=== PATIENT | female | born 1980 | race Caucasian/White ===

== ENCOUNTER 2018-07-22 22:10 | Emergency (ER) | payer OTHER ==
[2018-07-22] MEDS ORDERED: NS 1,000 ML IV ONE (22:14)
--- NOTE | 2018-07-22 22:16 | EDPHY ---
H & P Time Seen by Provider: 07/22/18 22:14 HPI/ROS: HPI CHIEF COMPLAINT: Syncope HISTORY OF PRESENT ILLNESS: Patient is a very pleasant 38-year-old female she is otherwise healthy however takes thyroid medication, she just arrived here from [place]. She states she stayed well hydrated. She went out to dinner tonight and ate edible marijuana and then had a syncopal episode. She is unclear exactly what happened. She denies any chest pain shortness of breath, denies palpitations. Denies lightheadedness. She flew in today. Currently upon arrival to the emergency room she denies any complaints except a left-sided headache where she struck her head. She has supra-orbital left eyebrow hematoma. Past Medical History: Thyroid disease Past Surgical History: Denies recent surgery Social History: Pre denies daily use of drugs alcohol tobacco. Did edible marijuana tonight. Up to 10 mg orally. Family History: Noncontributory ROS REVIEW OF SYSTEMS: 10 Systems were reviewed and negative with the exception of the elements mentioned in the history of present illness. Exam Constitutional nontoxic no acute distress triage nursing summary reviewed, vital signs reviewed, awake/alert. Eyes normal conjunctivae and sclera, EOMI, PERRLA. HENT head/neck atraumatic except over the left eyebrow there is a hematoma present, midface stable, no midline neck pain, moist mucus membranes, no epistaxis, neck supple/ no meningismus, no raccoon eyes. Respiratory clear to auscultation bilaterally, normal breath sounds, no respiratory distress, no wheezing. Cardiovascular rate normal, regular rhythm, no murmur, no edema, distal pulses normal. Gastrointestinal soft, non-tender, no rebound, no guarding, normal bowel sounds, no distension, no pulsatile mass. Genitourinary no CVA tenderness. Musculoskeletal no midline vertebral tenderness, full range of motion, no calf swelling, no tenderness of extremities, no meningismus, good pulses, neurovascularly intact. Skin pink, warm, & dry, no rash, skin atraumatic. Neurologic awake, alert and oriented x 3, AAOx3, moves all 4 extremities equally, motor intact, sensory intact, CN II-XII intact, normal cerebellar, normal vision, normal speech. Psychiatric normal mood/affect. Heme/Lymph/Immune no lymphadenopathy. Differential Diagnosis: Includes but is not limited to in a particular order closed-head injury, intracranial bleed, skull fracture, orbital fracture, vasovagal syncope, orthostatic syncope, dehydration, cardiac arrhythmia, electrolyte disturbance, marijuana intoxication, dehydration, altitude illness Medical Decision Making: Plan for this patient IV establishment IV fluid bolus EKG, troponin, electrolytes, CT scan head without contrast for trauma given fall with external head trauma on exam, chest x-ray. Re-evaluation: EKG interpretation by me on record in [facility] system. Impression time of EKG 2224, sinus rhythm rate of 66, no signs of cardiac arrhythmia no signs of WPW no signs of Brugada. No signs of acute ischemia. CT scan head without contrast negative for acute traumatic injury called to me by Dr. Garcia. Chest x-ray one view reviewed negative for acute cardiopulmonary disease. Lab work reviewed negative troponin. Potassium slightly low oral potassium ordered. Patient re-evaluated 2340: Patient requesting discharge. She feels much better would like to go home. Return precautions discussed with her she understands return emergency room she develops chest pain, shortness of breath, syncope, Recommend staying well hydrated. Drink lots of fluids. Return if worse Source: Patient, EMS Constitutional: Initial Vital Signs Temperature (C) 37.2 C 07/22/18 22:24 Heart Rate 68 07/22/18 22:24 Respiratory Rate 18 07/22/18 22:24 Blood Pressure 127/70 H 07/22/18 22:24 O2 Sat (%) 97 07/22/18 22:24 O2 Delivery Mode Room Air Allergies/Adverse Reactions: medroxyprogesterone [From Depo-Provera] Allergy (Verified 07/22/18 22:15) polyethylene glycol 3350 [From Miralax] Allergy (Verified 07/22/18 22:15) Home Medications: Medication Instructions Recorded Citrulline 07/22/18 Levothyroxine 07/22/18 Medical Decision Making - Diagnostics Imaging Results: Imaging Impressions Chest X-Ray 07/22/18 22:14 Impression: 1. No acute pulmonary disease. 2. Consider chest two views when the patient's medical condition permits. Head CT 07/22/18 22:14 Impression: 1. Left periorbital hematoma. 2. No skull fracture. 3. No intracranial hemorrhage or epidural/subdural hematoma. Findings and recommendations discussed with Emergency Department physician, Volodymyr Grewal MD at 23:03 hour, 07/22/2018. Final report concurs with initial preliminary interpretation. - Data Points Laboratory Results: Laboratory Results 07/22/18 22:20 07/22/18 22:20 07/22/18 07/22/18 07/22/18 22:24 22:20 22:20 WBC RBC Hgb Hct MCV MCH MCHC RDW Plt Count MPV Neut % (Auto) Lymph % (Auto) [place] % (Auto) Eos % (Auto) Baso % (Auto) Nucleat RBC Rel Count Absolute Neuts (auto) Absolute Lymphs (auto) Absolute Monos (auto) Absolute Eos (auto) Absolute Basos (auto) Absolute Nucleated RBC Immature Gran % Immature Gran # Sodium 136 mEq/L mEq/L (135-145) Potassium 3.1 mEq/L L mEq/L (3.3-5.0) Chloride 101 mEq/L mEq/L (97-110) Carbon Dioxide 28 mEq/l mEq/l (22-31) Anion Gap 7 mEq/L mEq/L (6-14) BUN 8 mg/dL mg/dL (7-23) Creatinine 0.7 mg/dL mg/dL (0.6-1.0) Estimated GFR > 60 Glucose 109 mg/dL H mg/dL (70-100) Calcium 9.1 mg/dL mg/dL (8.5-10.4) Magnesium 2.0 mg/dL mg/dL (1.6-2.3) Total Bilirubin 1.1 mg/dL mg/dL (0.1-1.4) Conjugated Bilirubin 0.1 mg/dL mg/dL (0.0-0.5) Unconjugated Bilirubin 1.0 mg/dL mg/dL (0.0-1.1) AST 27 IU/L IU/L (14-46) ALT 27 IU/L IU/L (9-52) Alkaline Phosphatase 55 IU/L IU/L (38-126) POC Troponin I 0.01 ng/mL ng/mL (0.00-0.08) NT-Pro-B Natriuret Pep 29 pg/mL pg/mL (0-125) Total Protein 6.9 g/dL g/dL (6.3-8.2) Albumin 4.1 g/dL g/dL (3.5-5.0) Lipase 90 IU/L IU/L (23-300) Beta HCG, Qual NEGATIVE 07/22/18 22:20 WBC 8.41 10^3/uL 10^3/uL (3.80-9.50) RBC 4.13 10^6/uL L 10^6/uL (4.18-5.33) Hgb 12.3 g/dL L g/dL (12.6-16.3) Hct 37.2 % L % (38.0-47.0) MCV 90.1 fL fL (81.5-99.8) MCH 29.8 pg pg (27.9-34.1) MCHC 33.1 g/dL g/dL (32.4-36.7) RDW 12.3 % % (11.5-15.2) Plt Count 278 10^3/uL 10^3/uL (150-400) MPV 10.1 fL fL (8.7-11.7) Neut % (Auto) 44.3 % % (39.3-74.2) Lymph % (Auto) 45.8 % H % (15.0-45.0) [place] % (Auto) 5.9 % % (4.5-13.0) Eos % (Auto) 3.1 % % (0.6-7.6) Baso % (Auto) 0.7 % % (0.3-1.7) Nucleat RBC Rel Count 0.0 % % (0.0-0.2) Absolute Neuts (auto) 3.72 10^3/uL 10^3/uL (1.70-6.50) Absolute Lymphs (auto) 3.85 10^3/uL H 10^3/uL (1.00-3.00) Absolute Monos (auto) 0.50 10^3/uL 10^3/uL (0.30-0.80) Absolute Eos (auto) 0.26 10^3/uL 10^3/uL (0.03-0.40) Absolute Basos (auto) 0.06 10^3/uL 10^3/uL (0.02-0.10) Absolute Nucleated RBC 0.00 10^3/uL 10^3/uL (0-0.01) Immature Gran % 0.2 % % (0.0-1.1) Immature Gran # 0.02 10^3/uL 10^3/uL (0.00-0.10) Sodium Potassium Chloride Carbon Dioxide Anion Gap BUN Creatinine Estimated GFR Glucose Calcium Magnesium Total Bilirubin Conjugated Bilirubin Unconjugated Bilirubin AST ALT Alkaline Phosphatase POC Troponin I NT-Pro-B Natriuret Pep Total Protein Albumin Lipase Beta HCG, Qual Medications Given: Discontinued Medications Sodium Chloride (Ns) 1,000 mls @ 0 mls/hr IV EDNOW ONE; Wide Open PRN Reason: Protocol Stop: 07/22/18 22:15 Last Admin: 07/22/18 22:20 Dose: 1,000 mls Ibuprofen (Motrin) 800 mg PO EDNOW ONE Stop: 07/22/18 22:56 Last Admin: 07/22/18 22:57 Dose: 800 mg Potassium Chloride (Klor Packets) 20 meq PO EDNOW ONE Stop: 07/22/18 23:02 Last Admin: 07/22/18 23:09 Dose: 20 meq Point of Care Test Results: Chemistry 07/22/18 22:24 POC Troponin I 0.01 ng/mL ng/mL (0.00-0.08) Departure - Departure Disposition: Home, Routine, Self-Care Clinical Impression: Syncope Qualifiers: Syncope type: unspecified Qualified Code(s): R55 - Syncope and collapse Condition: Good Instructions: Syncope (ED) Additional Instructions: 1. Stay well-hydrated drink lots of fluids 2. Return to the emergency room if there is worsening symptoms 3. Refrain from marijuana and alcohol. 4. Why your at altitude drink lots of fluids. Referrals: Patient,NotPresent [Primary Care Provider] - As per Instructions
[2018-07-22 22:35] LABS: PLATELET COUNT 278 10^3/uL (150-400)
[2018-07-22] MEDS ORDERED: IBUPROFEN 800 MG TAB PO ONE (22:55)
[2018-07-22] MEDS ORDERED: POTASSIUM CL 20 MEQ PKT PO ONE (23:01)
[2018-07-22 23:55] VITALS: BP 137/98
--- NOTE | 2018-07-26 05:48 | CPEKG ---
Test Reason : OPEN Blood Pressure : / mmHG Vent. Rate : 066 BPM Atrial Rate : 065 BPM P-R Int : 165 ms QRS Dur : 121 ms QT Int : 406 ms P-R-T Axes : 067 054 050 degrees QTc Int : 426 ms Sinus rhythm Nonspecific intraventricular conduction delay Confirmed by Volodymyr Grewal ([id number]) on 07/26/2018 5:47:35 AM Referred By: Confirmed By:Volodymyr Grewal
== END 2018-07-22 23:59 | disposition home or self-care (01) ==
DX: R55 Syncope and collapse (principal); S00.83XA Contusion of other part of head, initial encounter; W07.XXXA Fall from chair, initial encounter; Y92.511 Restaurant or cafe as the place of occurrence of the external cause
CPT/HCPCS: 84484-PO